=== PATIENT | female | born 1955 | race Caucasian/White ===

== ENCOUNTER 2017-02-03 04:34 | Day surgery (SDC) | payer BC ==
[~2017-02-03] VITALS: Ht 165.1 cm; Wt 48.9 kg
[2017-02-03] MEDS ORDERED: ONDANSETRON 2MG/ML, 2ML ONE ×3 (05:23→12:48)
[2017-02-03] MEDS ORDERED: MORPHINE SULFATE 4 MG/ML, 1ML ONE ×3 (05:23→09:32)
[2017-02-03] MEDS ORDERED: ONDANSETRON 2MG/ML, 2ML IVPush ONE (05:30)
[2017-02-03] MEDS ORDERED: SODIUM CHLORIDE 0.9% 1,000ML IVBOLUS ONE (05:30)
[2017-02-03] MEDS ORDERED: SODIUM CHLORIDE FLUSH 10ML SYR IVF ONE (05:30)
[2017-02-03 05:41] LABS: HEMATOCRIT 39.5 % (34.6-47.8); HEMOGLOBIN 13.5 g/dL (11.7-16.4); WHITE BLOOD COUNT 11.3 x10^3/uL (3.4-10)
[2017-02-03] MEDS ORDERED: DICYCLOMINE 10 MG/ML, 2ML ONE (05:46)
[2017-02-03 05:54] LABS: ASPARTATE AMINO TRANSFERASE 28 U/L (15-37); BLOOD UREA NITROGEN 11 mg/dL (7-18)
[2017-02-03] MEDS ORDERED: DICYCLOMINE 10 MG/ML, 2ML IM ONE (06:00)
[2017-02-03] MEDS: MORPHINE SULFATE 4 MG/ML, 1ML IVPush PRN ×3 (06:14→09:40)
[2017-02-03] MEDS ORDERED: OMNIPAQUE 350 MG/ML, 100ML BOTTLE ONE (06:21)
[2017-02-03 07:15] VITALS: BP 126/62
[2017-02-03] MEDS ORDERED: SODIUM CHLORIDE 0.9% 1,000 ML IV ONE (07:38)
[2017-02-03] MEDS ORDERED: CEFOTETAN PMX 1GM/50ML 50 ML ONE (07:52)
[2017-02-03] MEDS ORDERED: ONDANSETRON 2MG/ML, 2ML IVPush PRN ×2 (08:00→13:30)
[2017-02-03] MEDS ORDERED: MORPHINE SULFATE 4 MG/ML, 1ML IVPush PRN (08:00)
[2017-02-03] MEDS ORDERED: CEFOTETAN PMX 1GM/50ML 50 ML IV ONE (08:00)
[2017-02-03] MEDS ORDERED: SODIUM CHLORIDE FLUSH 10ML SYR IVF PRN (08:00)
[2017-02-03] MEDS ORDERED: EPINEPHRINE 1 MG/ML, 1ML ONE (10:47)
[2017-02-03] MEDS ORDERED: BUPIVACAINE/PF 0.5% ONE (10:47)
[2017-02-03] MEDS ORDERED: MULT-6 PO (10:49)
[2017-02-03] MEDS ORDERED: CALC1TAB86 PO (10:49)
[2017-02-03] MEDS ORDERED: FENTANYL PF 250 MCG/5ML ONE (12:41)
[2017-02-03] MEDS ORDERED: MIDAZOLAM 1 MG/ML, 2ML ONE (12:41)
[2017-02-03] MEDS ORDERED: ROCURONIUM 10 MG/ML,10ML ONE ×3 (12:45)
[2017-02-03] MEDS ORDERED: SUCCINYLCHOLINE 20 MG/ML, 10ML ONE (12:48)
[2017-02-03] MEDS ORDERED: LIDOCAINE GEL 2%, 5ML ONE (12:48)
[2017-02-03] MEDS ORDERED: DEXAMETHASONE 4 MG/ML, 1ML ONE (12:48)
[2017-02-03] MEDS ORDERED: PROPOFOL 10 MG/ML, 20ML ONE (12:54)
[2017-02-03] MEDS ORDERED: LABETALOL 5MG/ML, 20ML IV PRN (13:30)
[2017-02-03] MEDS ORDERED: FENTANYL PF 100 MCG/2ML IV PRN (13:30)
[2017-02-03] MEDS ORDERED: HYDROmorphone 1 MG/ML, 1ML IV PRN (13:30)
[2017-02-03] MEDS ORDERED: LORazepam 2 MG/ML, 1ML IVPush PRN (13:30)
[2017-02-03] MEDS ORDERED: MIDAZOLAM 1 MG/ML, 2ML IV PRN (13:30)
[2017-02-03] MEDS ORDERED: MEPERIDINE/PF 25MG/0.5ML IVPush PRN (13:30)
[2017-02-03] MEDS ORDERED: PROMETHAZINE 25 MG/ML, 1ML IV PRN (13:30)
[2017-02-03] MEDS ORDERED: EPHEDRINE 50 MG/ML, 1ML IVPush PRN (13:30)
[2017-02-03] MEDS ORDERED: ACETAMINOPHEN 325 MG TABLET PO PRN (13:30)
[2017-02-03] MEDS ORDERED: SCOPOLAMINE PATCH, 1.5MG PATCH.TD72 TD ONE ×2 (17:20→17:30)
[2017-02-03] MEDS ORDERED: SCOPOLAMINE 1MG PATCH TD ONE (17:30)
[2017-02-03] MEDS ORDERED: PROMETHAZINE 25 MG/ML, 1ML IM ONE (17:30)
== END 2017-02-03 17:45 ==
LOC: ED 07:37 → SDC 07:38 → UNDOADMIN 07:38 → EDIP 07:38 → ED 07:57 → UNDODISIN 17:45 → SDC 17:45
PROVIDERS: ATTEND Colon & Rectal Surgery
DX: K37 Unspecified appendicitis (principal); Z88.5 Allergy status to narcotic agent; Z88.8 Allergy status to other drugs, medicaments and biological substances
CPT/HCPCS: 36415; 74177; 80053; 81001; 83690; 85025; 88304; J0171; J1100; J2250; J2405; J2704; J3010; J3490; Q9967; J0330; J0500; J7030; S0074